=== PATIENT | male | born 1960 | race African-American/Black ===

== ENCOUNTER → 2016-05-26 | Outpatient (CLI) | payer OTHER ==
[~2016-05-26] MED LIST: CLEOCIN HCL150 MG PO; LIPITOR 40 MG T40 M1 PO; MEDROL DOSPAK21 TAB PO; NAPROSYN500 MG PO; NOHOMEMEDICATIONS; ONDANSETRON HCL4 M2 PO; ZPAK PO
== END ==
LOC: RAD 09:38
DX: R91.8 Other nonspecific abnormal finding of lung field (principal); R05 Cough